=== PATIENT | female | born 1955 | race Caucasian/White ===

== ENCOUNTER 2017-05-07 09:32 | Day surgery (SDC) | payer OTHER ==
[2017-05-03 10:41] VITALS: BMI 24.0
[2017-05-07] MEDS ORDERED: PROPOFOL 20 ML ONE ×3 (09:38→10:14)
[2017-05-07 09:57] VITALS: TEMP 98.2
[2017-05-07 11:47] VITALS: BP 115/70; PULSE 61
== END 2017-05-07 11:40 | disposition home or self-care (01) ==
LOC: FASU-ENDO 09:32
PROVIDERS: ATTEND Internal Medicine Gastroenterology
PROC: 0DJD8ZZ Inspection of Lower Intestinal Tract, Via Natural or Artificial Opening Endoscopic (ICD-10-PCS; principal; 2017-05-07 10:45)
DX: Z12.11 Encounter for screening for malignant neoplasm of colon (principal); Z83.71 Family history of colonic polyps